=== PATIENT | female | born 1980 ===

== ENCOUNTER 2016-06-23 22:30 | Emergency (ER) | payer OTHER ==
[2016-06-23 22:41] VITALS: RESP 16; TEMP 98; O2SAT 100
[2016-06-24 01:12] LABS: BASO % 0.4 % (0.0-2.0); EOS % 0.4 % (0.0-4.0); HEMATOCRIT 34.4 % (34.0-47.0); LYMPH # 1.6 K/uL (1.0-4.3); LYMPH % 18.3 % (20.0-40.0); MEAN CELL VOLUME 89.1 fl (81.0-99.0); MEAN CORPUSCULAR HEMOGLOBIN 29.6 pg (27.0-31.0); MEAN CORPUSCULAR HGB CONC 33.2 g/dL (33.0-37.0); MONO # 0.8 K/uL (0.0-0.8); MONO % 8.6 % (0.0-10.0); NEUT # 6.4 K/uL (1.8-7.0); NEUT % 72.3 % (50.0-75.0); RED CELL DISTRIBUTION WIDTH 15.3 % (11.5-14.5); WHITE BLOOD COUNT 8.9 K/uL (4.8-10.8)
--- NOTE | 2016-06-24 02:24 | ED PDOC ---
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 Patient sat on the toilet before urinating and saw lots of blood. Denies any associated pain. Abnormal Vaginal Bleeding: Yes : 1 Para: 0 Miscarriage: 0 Past Medical History Reviewed: Historical Data, Nursing Documentation, Vital Signs Vital Signs: Last Vital Signs Temp 98.0 F 06/23/16 22:38 Pulse 95 H 06/23/16 22:38 Resp 16 06/23/16 22:38 BP 108/59 L 06/23/16 22:38 Pulse Ox 100 06/23/16 22:38 - Medical History PMH: No Chronic Diseases - Surgical History Surgical History: Appendectomy Other surgeries: Left Oophorectomy - Family History Family History: States: No Known Family Hx - Social History Current smoker - smoking cessation education provided: No Ex-Smoker (has not smoked in the last 12 months): No Alcohol: None Drugs: Denies - Home Medications Home Medications: Ambulatory Orders Medication Instructions Recorded Acetaminophen/Hydrocodone Bi 1 tab PO QID PRN #10 tab 10/22/14 [Vicodin 300 mg-5 mg] - Allergies Allergies/Adverse Reactions: Allergies Allergy/AdvReac Type Severity Reaction Status Date / Time No Known Allergies Allergy Unverified 10/29/12 21:13 Review of Systems ROS Statement: Except As Marked, All Systems Reviewed And Found Negative Genitourinary Female: Positive for: Vaginal Bleeding Physical Exam - Reviewed Nursing Documentation Reviewed: Yes Vital Signs Reviewed: Yes - Physical Exam Appears: Positive for: Well, No Acute Distress Head Exam: Positive for: ATRAUMATIC, NORMAL INSPECTION, NORMOCEPHALIC Skin: Positive for: Normal Color, Warm, Dry Eye Exam: Positive for: Normal appearance, EOMI, PERRL ENT: Positive for: Normal ENT Inspection Neck: Positive for: Normal, Painless ROM, Supple Cardiovascular/Chest: Positive for: Regular Rate, Rhythm. Negative for: Murmur , Tachycardia Respiratory: Positive for: Normal Breath Sounds. Negative for: Wheezing, Respiratory Distress Gastrointestinal/Abdominal: Positive for: Normal Exam, Soft. Negative for: Tenderness Pelvic Exam: Positive for: External Exam Normal Back: Positive for: Normal Inspection Rectal: Positive for: Deferred Extremity: Positive for: Normal ROM Lymphatic: Positive for: Deferred Neurologic/Psych: Positive for: Alert, Oriented - Laboratory Results Result Diagrams: 06/24/16 00:12 - ECG O2 Sat by Pulse Oximetry: 100 (RA) Pulse Ox Interpretation: Normal Medical Decision Making Medical Decision Makin: Initial Impression: Female Genitourinary Initial Plan: * ABO/RH * Type and screen * Beta HCG * Urine * ED Udip * CBC * OB Transvaginal * Pelvis/Transvagag US * Re-Eval 0814: EXAM: US , Transvaginal CLINICAL HISTORY: 36 years old, female; Signs and symptoms; Lmp or gestational age (in weeks): ; Antepartum complications; Hemorrhage; TECHNIQUE: Real-time transvaginal obstetrical ultrasound of the maternal pelvis and a first trimester with image documentation. Transvaginal imaging was used for better evaluation of the fetus and adnexa. EXAM DATE/TIME: 06/24/2016 2:04 AM COMPARISON: No relevant prior studies available. FINDINGS: The uterus measures 10 x 7 cm. The cervix measures 4.1 cm. There is a 2 cm left fundal intramural fibroid. There is an intrauterine gestational sac containing a yolk sac and pole. Measurements correspond to a gestational age of 9 weeks 2 days. A heart rate of 173 beats per minute was obtained. There is a small 6 millimeter hypoechoic structure adjacent to the gestational sac likely representing a subchorionic bleed. Followup is recommended. There is a 1.4 cm simple cyst in the maternal right ovary. The maternal left ovary appears normal. Color flow and doppler vascular waveforms were demonstrated to both maternal ovaries. ROZINA KHAN | Final Radiology Report CONFIDENTIALITY STATEMENT This report is intended only for use by the referring physician, and only in accordance with law. If you received this in error, call [phone]. Page 2 of 2 IMPRESSION: Single live IUP. Small subchorionic bleed. Cyst maternal right ovary. US REPORT Labs showed no clinical significant abnormalities. Provider explained results and significance to patient. Pelvic and bed rest is advised for patient. She will f/u with Dr Gupta in 2-3 days Dx Subchorionic Hemmorage in early stable Scribe~Attestation: Documented by Yvon Pimentel acting as a~scribe~for Ian Pepper MD. ~ Provider~Scribe~Attestation: All medical record entries made by the~Scribe~were at my direction and personally dictated by me. I have reviewed the chart and agree that the record accurately reflects my personal performance of the history, physical exam, medical decision making, and the department course for this patient. I have also personally directed, reviewed, and agree with the discharge instructions and disposition. Disposition - Clinical Impression Clinical Impression: Subchorionic hemorrhage in first trimester - Disposition Referrals: Angelic Hermosillo MD [Primary Care Provider] - Jose Manuel Gracia MD [Staff Provider] - Disposition: Routine/Home Disposition Time: 04:00 Condition: STABLE Instructions: Subchorionic Hemorrhage (ED)"
[2016-06-24 03:48] VITALS: BP 112/65; PULSE 84
--- NOTE | 2016-06-24 12:42 | US ---
Indication: Vaginal bleeding in Comparison: None available Technique: Ob transvaginal ultrasound. Findings: There is a single intrauterine fetus present. 4 mm yolk sac. The gestational sac measures 3.5 cm and is compatible with a gestational age of 8 weeks 4 days. The crown-rump length measures 3.1 cm and is compatible with a gestational age of 10 weeks 0 days. There is heart motion which measured 173 BPM. 1.0 x 0.4 x 0.6 cm hypoechoic structure adjacent to the gestational sac, likely subchorionic hemorrhage. Evidence of 2 cm left fundal intramural fibroid. Cervix length measures approximately 4.1 cm. The right ovary measures 2.4 x 2.2 x 2.1 cm. 1.5 x 1.4 x 1.3 cm probable right ovarian follicle/cyst. The left ovary measures 1.2 x 0.5 x 1.7 cm. Blood flow was demonstrated to both ovaries. Impression: Live single intrauterine with estimated gestational age 8 weeks 4 days by gestational sac calculation and 10 weeks 0 days by crown-rump length calculation. heart rate 173 bpm. Small subchorionic hemorrhage. Probable uterine fibroid. Advise an anomaly screen at 16-18 weeks gestational age Preliminary impression was provided by virtual radiologic.
== END 2016-06-24 03:20 | disposition home or self-care (01) ==
LOC: H.ER 22:30
DX: O20.8 Other hemorrhage in early pregnancy (principal); O34.11 Maternal care for benign tumor of corpus uteri, first trimester; N83.201 Unspecified ovarian cyst, right side; Z3A.10 10 weeks gestation of pregnancy; Z87.891 Personal history of nicotine dependence

== ENCOUNTER 2016-09-09 02:50 | Emergency (ER) | payer OTHER ==
--- NOTE | 2016-09-09 04:36 | OBHP ---
Datetime: 09/09/2016 04:28 IP Adm Impression: , intrauterine ; No Active Labor; Intact Membranes IP Admit Plan: Observation/Evaluation; Discharge home Admit Comment, IP Provider: 36yo at 19.4wks GA c/o cramping. No VB, LoF, ctxs. No FM as of ye t. Pt reports being told she has a shortened cervix PMHx none PSHx Appendectomy, Oophorectomy Meds PNV NKDA OBHx SocHx No tobacco, no etoh, no drugs A-- No evidence of PTL or cervical incompetance at this time P-- Check UA, discharge home if results normal. Discussed plan with patient Pelvic Type - PN: Adequate Extremities - PN: Normal Abdomen - PN: Normal Back - PN: Normal Breast - PN: Normal Lungs - PN: Normal Heart - PN: Normal Thyroid - PN: Normal Neurologic - PN: Normal HEENT - PN: Normal General - PN: Normal FHR - Baseline A Provider: 160 doppler Membranes, Provider: Intact Contraction Comments Provider: none Comments, ACOG Physical Exam: Cx L/C/P Pool Provider: Negative EGA AdmitDate IP: 19.4 Vital Signs Provider: Reviewed; Within Normal Limits IP Chief Complaint: Maternal discomfort Dilatation, Provider: 0 Effacement, Provider: 0 Station, Provider: -4 Genitourinary Exam: Normal DTRs - PN: Normal
[2016-09-09 04:48] VITALS: BMI 34.4
[2016-09-09 05:49] LABS: URINE BILIRUBIN NEGATIVE (NEGATIVE); URINE BLOOD NEGATIVE (NEGATIVE); URINE CLARITY SLIGHT-CLOUDY (Clear); URINE COLOR STRAW (YELLOW); URINE GLUCOSE (UA) NEGATIVE (Normal); URINE PROTEIN NEGATIVE (NEGATIVE); URINE UROBILINOGEN 0.2 mg/dL (0.2-1.0)
[2016-09-09 05:50] LABS: URINE LEUKOCYTE ESTERASE NEGATIVE Leu/uL (Negative); URINE NITRATE NEGATIVE (NEGATIVE)
== END 2016-09-09 06:02 | disposition home or self-care (01) ==
LOC: H.EROB2 02:50
DX: O26.892 Other specified pregnancy related conditions, second trimester (principal); R10.9 Unspecified abdominal pain; Z3A.19 19 weeks gestation of pregnancy

== ENCOUNTER 2016-11-01 14:58 | Emergency (ER) | payer OTHER ==
--- NOTE | 2016-11-01 15:16 | OBADHP ---
Datetime: 09/09/2016 04:28 Admit Comment, IP Provider: 36yo at 19.4wks GA c/o cramping. No VB, LoF, ctxs. No FM as of ye t. Pt reports being told she has a shortened cervix PMHx none PSHx Appendectomy, Oophorectomy Meds PNV NKDA OBHx SocHx No tobacco, no etoh, no drugs A-- No evidence of PTL or cervical incompetance at this time P-- Check UA, discharge home if results normal. Discussed plan with patient Pelvic Type - PN: Adequate Extremities - PN: Normal Abdomen - PN: Normal Back - PN: Normal Breast - PN: Normal Lungs - PN: Normal Heart - PN: Normal Thyroid - PN: Normal Neurologic - PN: Normal HEENT - PN: Normal General - PN: Normal FHR - Baseline A Provider: 160 doppler Membranes, Provider: Intact Contraction Comments Provider: none Comments, ACOG Physical Exam: Cx L/C/P Pool Provider: Negative Vital Signs Provider: Reviewed; Within Normal Limits IP Chief Complaint: Maternal discomfort Dilatation, Provider: 0 Effacement, Provider: 0 Station, Provider: -4 Genitourinary Exam: Normal DTRs - PN: Normal EGA AdmitDate IP: 19.4 IP Adm Impression: , intrauterine ; No Active Labor; Intact Membranes IP Admit Plan: Observation/Evaluation; Discharge home
[2016-11-01 16:12] VITALS: BMI 32.5
[2016-11-01 21:15] VITALS: BP 103/65; PULSE 101
--- NOTE | 2016-11-02 00:38 | OBDCSUM ---
Datetime: 11/01/2016 16:58 Discharged to, Provider: Home Follow up at, Provider: Dr. Alexander Disch Instr Activity: Bedrest Disch Instr Diet: Regular Discharge Time: 11/01/2016 16:59 Follow up in weeks, Provider: 11/10/16 Disch Referrals: None Discharge Comment, Provider: spoke to Dr Alexander...will dischager home and follow up in 1w as sche duled Discharge Diagnosis Prov Other: tacycardia
== END 2016-11-01 17:00 | disposition home or self-care (01) ==
LOC: H.EROB2 14:58 → H.EROB 15:31 → H.EROB2 17:00
DX: O47.02 False labor before 37 completed weeks of gestation, second trimester (principal); Z3A.19 19 weeks gestation of pregnancy

== ENCOUNTER 2016-11-17 18:54 | Observation (INO) | payer OTHER ==
[2016-11-17 20:29] VITALS: BMI 33.3
[2016-11-17 21:45] LABS: BASO % 0.4 % (0.0-2.0); EOS % 0.4 % (0.0-4.0); HEMATOCRIT 34.9 % (34.0-47.0); LYMPH # 1.6 K/uL (1.0-4.3); LYMPH % 17.5 % (20.0-40.0); MEAN CELL VOLUME 93.1 fl (81.0-99.0); MEAN CORPUSCULAR HEMOGLOBIN 31.4 pg (27.0-31.0); MEAN CORPUSCULAR HGB CONC 33.8 g/dL (33.0-37.0); MEAN PLATELET VOLUME 7.5 fl (7.2-11.7); MONO # 0.9 K/uL (0.0-0.8); MONO % 9.8 % (0.0-10.0); NEUT # 6.5 K/uL (1.8-7.0); NEUT % 71.9 % (50.0-75.0); RED CELL DISTRIBUTION WIDTH 15.1 % (11.5-14.5)
[2016-11-18] MEDS: Lactated Ringer's 1,000 ML IV SCH ×2 (04:53→04:54)
--- NOTE | 2016-11-18 11:51 | OBHP ---
Datetime: 11/01/2016 16:04 IP Adm Impression: , intrauterine ; No Active Labor; Intact Membranes IP Chief Complaint Other: TACHYCARDIA NOTED ON SONOGRAM AT [facility] IP Admit Plan: Observation/Evaluation; Discharge home Admit Comment, IP Provider: 36yo IUP at 28w sent from [facility] for tachycardia. No SORM. no V B. +FM PNC CP Dr Gracia prental chart rev'd EDC Jan 23 PMH: denies PSH: laparoscopy; D_C; breast surgery, appendectomy; ovarina cystectomy NKA POBH: denies STD A: IUp at 29w reported tachycardia PLAN: prolonged NST contacted Dr Gracia's office Pelvic Type - PN: Adequate Extremities - PN: Normal Abdomen - PN: Normal Back - PN: Normal Breast - PN: Not Done Lungs - PN: Normal Heart - PN: Normal Thyroid - PN: Normal Neurologic - PN: Normal HEENT - PN: Normal General - PN: Normal FHR - Baseline A Provider: 150 Contraction Comments Provider: none Comments, ACOG Physical Exam: ROS: General: no weakness; no fatigue HEENT: no BUSBY; no visual dist CV: no palpitations; no no CP GI: no N/V no diarhea : no F/U/D MS: No joint pain IP Hx Assessment: The History has been Reviewed and is Current EGA AdmitDate IP: 27.1 Vital Signs Provider: Reviewed IP Chief Complaint: Other NICHD Variability Prov Fetus A: Moderate 6-25bpm NICHD Accel Fetus A IP Provider: 10X10 FHR Category Provider Fetus A: Category I NICHD Decel Fetus A IP Provider: None Dilatation, Provider: ft Genitourinary Exam: Normal DTRs - PN: Normal
--- NOTE | 2016-11-18 12:13 | OBHP ---
Datetime: 11/18/2016 11:51 IP Adm Impression: , intrauterine ; No Active Labor; Intact Membranes IP Admit Plan: Observation/Evaluation Admit Comment, IP Provider: iup 30 weeks with cervical shortening on bed rest c/o small vaginal blee d dark brown observed on exam cervix ft and no active bleeding admitted for observation if no bleedin g will obtain pelvic us for cervical length and discharged home to continue bed rest Pelvic Type - PN: Adequate Extremities - PN: Normal Abdomen - PN: Normal Back - PN: Normal Breast - PN: Normal Lungs - PN: Normal Heart - PN: Normal Thyroid - PN: Normal Neurologic - PN: Normal HEENT - PN: Normal General - PN: Normal FHR - Baseline A Provider: 150 Membranes, Provider: Intact Contraction Comments Provider: no Gestation - Est Wks by US: 30.0 EGA AdmitDate IP: 29.4 Vital Signs Provider: Reviewed; Within Normal Limits IP Chief Complaint: Vaginal bleeding NICHD Variability Prov Fetus A: Moderate 6-25bpm NICHD Accel Fetus A IP Provider: 10X10 FHR Category Provider Fetus A: Category I NICHD Decel Fetus A IP Provider: None Dilatation, Provider: ft Effacement, Provider: 50 Station, Provider: -2 Genitourinary Exam: Normal DTRs - PN: Normal
--- NOTE | 2016-11-18 12:20 | OBDCSUM ---
Datetime: 11/18/2016 12:13 Discharged to, Provider: Home Follow up at, Provider: Disch Instr Activity: Bedrest Disch Instr Diet: Regular Discharge Instructions, Provider: Specific instructions as noted Discharge Time: 11/18/2016 12:13 Follow up in weeks, Provider: 1week Disch Referrals: None Discharge Comment, Provider: al home today rtc 1week ,call service if any problems continue bed rest Datetime: 11/01/2016 16:58 Discharge Instructions, Provider: Specific instructions as noted
--- NOTE | 2016-11-18 14:18 | US ---
PROCEDURE: Limited ultrasound HISTORY: Vaginal bleeding, assess cervical length COMPARISON: 06/24/2016. TECHNIQUE: Standard protocol for this study/examination. FINDINGS: Live intrauterine gestation. Cardiac rate 146 beats per minute. Closed cervix 4.1 cm. IMPRESSION: Cervical length 4.1 cm. Live intrauterine gestation. No additional information can be gleaned from this limited study as requested and reported
[2016-11-18 20:07] VITALS: BP 105/61; PULSE 101; RESP 18; TEMP 98.4; O2SAT 99
== END 2016-11-18 15:45 | disposition home or self-care (01) ==
LOC: H.EROB2 18:54 → H.L&D 20:05
PROVIDERS: ADMIT Specialist; ATTEND Specialist
DX: O26.873 Cervical shortening, third trimester (principal); O76 Abnormality in fetal heart rate and rhythm complicating labor and delivery; Z3A.30 30 weeks gestation of pregnancy
CPT/HCPCS: 76817; 85025; 86850; 86900; 99284; G0378; J7120

== ENCOUNTER 2017-01-14 04:39 | Inpatient (IN) | payer BC, OTHER ==
--- NOTE | 2017-01-14 04:49 | OBHP ---
Datetime: 11/18/2016 11:51 IP Admit Plan: Admit to unit; Observation/Evaluation Admit Comment, IP Provider: iup 30 weeks with cervical shortening on bed rest c/o small vaginal blee d dark brown observed on exam cervix ft and no active bleeding admitted for observation if no bleedin g will obtain pelvic us for cervical length and discharged home to continue bed rest. ADDENDUM: PT ADMITTED EGA AdmitDate IP: 29.4
--- NOTE | 2017-01-14 04:49 | OBADHP ---
Datetime: 11/18/2016 11:51 Admit Comment, IP Provider: iup 30 weeks with cervical shortening on bed rest c/o small vaginal blee d dark brown observed on exam cervix ft and no active bleeding admitted for observation if no bleedin g will obtain pelvic us for cervical length and discharged home to continue bed rest. ADDENDUM: PT ADMITTED Pelvic Type - PN: Adequate Extremities - PN: Normal Abdomen - PN: Normal Back - PN: Normal Breast - PN: Normal Lungs - PN: Normal Heart - PN: Normal Thyroid - PN: Normal Neurologic - PN: Normal HEENT - PN: Normal General - PN: Normal FHR - Baseline A Provider: 150 Membranes, Provider: Intact Contraction Comments Provider: no Gestation - Est Wks by US: 30.0 Vital Signs Provider: Reviewed; Within Normal Limits IP Chief Complaint: Vaginal bleeding NICHD Variability Prov Fetus A: Moderate 6-25bpm NICHD Accel Fetus A IP Provider: 10X10 FHR Category Provider Fetus A: Category I NICHD Decel Fetus A IP Provider: None Dilatation, Provider: ft Effacement, Provider: 50 Station, Provider: -2 Genitourinary Exam: Normal DTRs - PN: Normal EGA AdmitDate IP: 29.4 IP Adm Impression: , intrauterine ; No Active Labor; Intact Membranes IP Admit Plan: Admit to unit; Observation/Evaluation Datetime: 11/01/2016 16:04 IP Chief Complaint Other: TACHYCARDIA NOTED ON SONOGRAM AT [facility] Comments, ACOG Physical Exam: ROS: General: no weakness; no fatigue HEENT: no BUSBY; no visual dist CV: no palpitations; no no CP GI: no N/V no diarhea : no F/U/D MS: No joint pain IP Hx Assessment: The History has been Reviewed and is Current
[2017-01-14 08:22] VITALS: BMI 29.9
[2017-01-14] MEDS ORDERED: Lactated Ringer's 1,000 ML IV SCH (08:30)
[2017-01-14] MEDS: Lactated Ringer's 1,000 ML IV SCH ×2 (09:00→10:07)
[2017-01-14 09:41] LABS: BASO % 0.4 % (0.0-2.0); HEMATOCRIT 38.9 % (34.0-47.0); LYMPH % 11.2 % (20.0-40.0); MEAN PLATELET VOLUME 7.9 fl (7.2-11.7); MONO # 0.7 K/uL (0.0-0.8); MONO % 7.6 % (0.0-10.0); NEUT # 7.5 K/uL (1.8-7.0); NEUT % 80.8 % (50.0-75.0); RED CELL DISTRIBUTION WIDTH 15.3 % (11.5-14.5); WHITE BLOOD COUNT 9.2 K/uL (4.8-10.8)
[2017-01-14] MEDS ORDERED: Bupivacaine HCl 0.25% PF (10 ml) Inj ONE (11:01)
[2017-01-14] MEDS ORDERED: Fentanyl/Bupivacaine HCl 250 ML EPI ONE (11:01)
[2017-01-14] MEDS ORDERED: Oxytocin 30 units/LR 500ML 30 U/500 ML BAG IV ONE (11:59)
[2017-01-14] MEDS ORDERED: Oxytocin 30 UNITS in Sodium Chloride 0.9% 500 ML IV ONE (12:15)
[2017-01-14] MEDS ORDERED: Lidocaine 1% Inj (20ml) ONE (14:40)
--- NOTE | 2017-01-14 16:44 | OBDS ---
DELIVERY PERSONNEL Delivery Doctor: Marina Gracia MD Packager Head: Miranda Key RN Anesthesiologist: Juan Carlos Siddiqui MD MATERNAL INFORMATION Delivery Anesthesia: Local; Epidural Medications in Delivery: Lidocaine 1%, Pitocin 30mu/500 mL Estimated Blood Loss (ml): 350ml Placenta Cultured: No Maternal Complications: None Provider Comments: deliveryof liive baby girl 9/9 meconium fluid cord with 3 vessels placenta intact repair of midline episiotomy and repair LABOR SUMMARY EDC: 01/23/2017 00:00 No. Babies in Womb: 1 Attempted: No Labor Anesthesia: Epidural LABOR INFORMATION Reason for Induction: Not Applicable Onset of Labor: 01/14/2017 03:15 Complete Dilatation: 01/14/2017 14:41 Oxytocin: Augmentation Group B Beta Strep: Negative Antibiotics # of Doses: n/a Antibiotics Time of Last Dose: n/a Steroids Given: None Reason Steroids Not Administered: Not Applicable MEMBRANES Membranes Rupture Method: Artificial Rupture of Membranes: 01/14/2017 11:43 Length of Rupture (hrs): 4.28 Amniotic Fluid Color: Heavy Meconium Amniotic Fluid Amount: Moderate Amniotic Fluid Odor: None STAGES OF LABOR Stage 1 hrs: 11 Stage 1 min: 26 Stage 2 hrs: 1 Stage 2 min: 19 Stage 3 hrs: 0 Stage 3 min: 5 Total Time in Labor hrs: 12 Total Time in Labor min: 50 VAGINAL DELIVERY Episiotomy: None Laceration Extension: N/A Laceration Type: None Laceration Repair: Yes Laceration Repair Note: repair of midline episiotomy with 2-0chromic Count Comment: correct BABY A INFORMATION Delivery Date/Time: 01/14/2017 16:00 Method of Delivery: Vaginal Born in Route : No : N/A Forceps: N/A Vacuum Extraction: N/A Shoulder Dystocia : No SHOULDER DYSTOCIA BABY A Infant Delivery Date/Time: 01/14/2017 16:00 PRESENTATION/POSITION BABY A Presentation: Cephalic Cephalic Presentation: Vertex Breech Presentation: N/A PLACENTA INFORMATION BABY A Placenta Delivery Time : 01/14/2017 16:05 Placenta Method of Delivery: Spontaneous Placenta Status: Delivered SCORES BABY A Heart Rate 1 min: >100 bpm Resp Effort 1 min: Good Cry Reflex Irritability 1 min: Cough or Sneeze or Pulls Away Muscle Tone 1 min: Active Motion Color 1 min: Body Balta, Extremities Blue Resuscitation Effort 1 min: N/A SCORE 1 MIN: 9 Heart Rate 5 min: >100 bpm Resp Effort 5 min: Good Cry Reflex Irritability 5 min: Cough or Sneeze or Pulls Away Muscle Tone 5 min: Active Motion Color 5 min: Body Balta, Extremities Blue Resuscitation Effort 5 min: N/A SCORE 5 MIN: 9 INFANT INFORMATION BABY A Gestational Age at Delivery: 38.5 Gestational Status: Term Infant Outcome : Liveborn Infant Condition : Stable Sex: Female IDENTIFICATION/MEDS BABY A ID Band Number: [id number] ID Band Location: Left Leg; Left Arm WEIGHT/LENGTH BABY A Birthweight (gms): 3235 Weight (lb): 7 Infant Weight (oz): 2 CORD INFORMATION BABY A No. Cord Vessels: 3 Nuchal Cord : N/A Cord Blood Taken: Yes Suction: Mouth; Nose
[2017-01-14] MEDS ORDERED: Oxycodone/Acetaminophen 5/325 mg Tab PO PRN ×4 (16:46→19:10)
[2017-01-15 10:46] LABS: BASO # 0.1 K/uL (0.0-0.2); BASO % 0.6 % (0.0-2.0); EOS % 0.2 % (0.0-4.0); LYMPH # 1.2 K/uL (1.0-4.3); LYMPH % 9.7 % (20.0-40.0); MEAN CELL VOLUME 94.4 fl (81.0-99.0); MEAN CORPUSCULAR HEMOGLOBIN 31.6 pg (27.0-31.0); MEAN CORPUSCULAR HGB CONC 33.5 g/dL (33.0-37.0); MEAN PLATELET VOLUME 7.6 fl (7.2-11.7); MONO # 0.7 K/uL (0.0-0.8); NEUT # 10.3 K/uL (1.8-7.0); NEUT % 83.5 % (50.0-75.0); PLATELET COUNT 215 K/uL (130-400); RED CELL DISTRIBUTION WIDTH 15.2 % (11.5-14.5); WHITE BLOOD COUNT 12.3 K/uL (4.8-10.8)
--- NOTE | 2017-01-15 11:27 | OBPPN ---
Datetime: 01/15/2017 11:24 PP Pain Prov: Within normal limits PP Pain Prov comment: No SOB, chest or leg pain PP Nausea Prov: Denies PP Flatus Prov: Yes PP Breasts Prov: Normal PP Lungs Prov: Normal PP Abdomen/Uterus Prov: Abnormal PP Lochia Prov: Normal PP Vulva/Perineum Prov: Not Done PP CVA Tenderness Prov: Normal PP Extremities Prov: Normal PP C/S Incision Prov: Not Applicable PP Progress Prov: Normal PP Comments Phys Exam Prov: b reast NE, not tender Abd soft ND, fundus firm below the umb NT EDxt n o calf tenderness PP Impression Prov: Normal progression PP Plan Prov: Continue present management PP Progress Note Prov: OOB and ambulation Start Fe SO4 Increase po fluids IP PP Procedures: None Vital Signs Provider PP: Reviewed
[2017-01-15 11:42] LABS: NEUTROPHIL 80 % (42-75); TOTAL CELLS COUNTED 100
[2017-01-15] MEDS ORDERED: Influenza Vaccine 18yr & older 0.5 ML/45 MCG SYR IM ONE (17:40)
--- NOTE | 2017-01-16 09:27 | OBPPN ---
Datetime: 01/16/2017 09:22 PP Pain Prov: Within normal limits PP Nausea Prov: Present PP Flatus Prov: Yes PP BM Prov: Yes PP Breasts Prov: Normal PP Heart Prov: Normal PP Lungs Prov: Normal PP Abdomen/Uterus Prov: Normal PP Lochia Prov: Normal PP Vulva/Perineum Prov: Normal PP CVA Tenderness Prov: Normal PP Extremities Prov: Normal PP Progress Prov: Normal PP Impression Prov: Normal progression PP Plan Prov: Continue present management PP Progress Note Prov: stable ppd2 dc home today IP PP Procedures: None Vital Signs Provider PP: Reviewed; Within Normal Limits
--- NOTE | 2017-01-16 09:30 | OBDCSUM ---
Datetime: 01/16/2017 09:24 Discharged to, Provider: Home Follow up at, Provider: Disch Instr Activity: Bedrest; May be up to bathroom; May be up for meals; May Shower Disch Instr Diet: Regular Discharge Instructions, Provider: Routine instructions given Discharge Diagnosis, Provider: Term Delivered Discharge Time: 01/16/2017 09:24 Follow up in weeks, Provider: 5-6 weeks Disch Referrals: None Disch Activity Restrictions: No exercising; No lifting; No driving; Minimize walking; Minimize stair -climbing; No sexual activity; Nothing in vagina - [place], tampons, douche Discharge Comment, Provider: jazmyne home today rto5-6 weeks call office if any problems Contraception after Delivery: Tubal Ligation
[2017-01-16 21:25] VITALS: BP 104/58; PULSE 87; RESP 16; TEMP 98.1; O2SAT 98
== END 2017-01-16 15:55 | disposition home or self-care (01) | DRG 775 ==
LOC: H.EROB2 04:39 → H.L&D 07:30 → H.OB/GYN 21:11
PROVIDERS: ADMIT Specialist; ATTEND Specialist
PROC: 0W8NXZZ Division of Female Perineum, External Approach (ICD-10-PCS; principal; 2017-01-14)
PROC: 10E0XZZ Delivery of Products of Conception, External Approach (ICD-10-PCS; 2017-01-14)
PROC: 10907ZC Drainage of Amniotic Fluid, Therapeutic from Products of Conception, Via Natural or Artificial Opening (ICD-10-PCS; 2017-01-14)
PROC: 4A1HXCZ Monitoring of Products of Conception, Cardiac Rate, External Approach (ICD-10-PCS; 2017-01-14)
DX: O26.873 Cervical shortening, third trimester (principal); O09.523 Supervision of elderly multigravida, third trimester; Z37.0 Single live birth; Z3A.38 38 weeks gestation of pregnancy

== ENCOUNTER 2017-02-11 14:28 | Emergency (ER) | payer OTHER ==
[2017-02-11 14:28] VITALS: BMI 29.9
[2017-02-11 14:36] VITALS: RESP 16; TEMP 98
[2017-02-11 15:55] LABS: BASO % 0.6 % (0.0-2.0); EOS % 0.4 % (0.0-4.0); HEMOGLOBIN 13.9 g/dL (12.0-16.0); LYMPH # 1.2 K/uL (1.0-4.3); LYMPH % 27.3 % (20.0-40.0); MEAN CELL VOLUME 93.6 fl (81.0-99.0); MEAN CORPUSCULAR HEMOGLOBIN 30.8 pg (27.0-31.0); MEAN CORPUSCULAR HGB CONC 32.9 g/dL (33.0-37.0); MEAN PLATELET VOLUME 9.2 fl (7.2-11.7); MONO # 0.5 K/uL (0.0-0.8); MONO % 10.2 % (0.0-10.0); NEUT # 2.8 K/uL (1.8-7.0); NEUT % 61.5 % (50.0-75.0); NRBC % 0.1 % (0.0-0.0); RBC 4.53 Mil/uL (3.80-5.20); RED CELL DISTRIBUTION WIDTH 14.4 % (11.5-14.5); WHITE BLOOD COUNT 4.5 K/uL (4.8-10.8)
--- NOTE | 2017-02-11 16:18 | RAD ---
HISTORY: chest pain COMPARISON: No prior. TECHNIQUE: Chest PA and lateral FINDINGS: LUNGS: No active pulmonary disease. PLEURA: No significant pleural effusion identified. No pneumothorax apparent. CARDIOVASCULAR: Normal. OSSEOUS STRUCTURES: No significant abnormalities. VISUALIZED UPPER ABDOMEN: Normal. OTHER FINDINGS: None. IMPRESSION: No active disease.
--- NOTE | 2017-02-11 16:32 | ED PDOC ---
HPI: Chest Pain Time Seen by Provider: 02/11/17 14:45 Chief Complaint (Nursing): Chest Pain Chief Complaint (Provider): Chest Pain History Per: Patient Onset/Duration Of Symptoms: Days (x2 weeks) Additional Complaint(s): 36 year old female presents to the emergency department with a complaint of an intermittent chest pain that is non-radiating and non-exertional x2 weeks. Reports chest pain is not related to anything that comes and goes. Patient describes pain is located to the xiphoid area. Patient states she visited her doctor at [facility] with an abnormal electrocardiogram (EKG). She says she has a history of abnormal EKG's and had seen Dr. Arredondo for it. Denies difficult breathing, fever, cough, syncope, and dizziness. Of note, patient underwent vaginal delivery in January 2017. Breast feeding normally. Against Medical Advice - AMA Patient Left Against Medical Advice: The patient declines admission to the hospital and wishes to leave the Emergency Department. This action is against my medical advice. This decision was made with informed refusal. The patient was told that admission to the hospital is necessary. Explanation of the reasons why were discussed. The risks of leaving were explained to the patient and include, but are not limited to, worsening of known or currently unknown conditions, permanent disability and from undiagnosed or untreated conditions. The patient has the capacity to make this informed decision and understands my explanation of the current medical problem and risks of leaving. The patient voluntarily accepts these risks and signed an AMA form documenting our conversation. The patient was given the opportunity to ask questions and reconsider. The patient was encouraged to return to the Emergency Department at any time for further care. Past Medical History Reviewed: Historical Data, Nursing Documentation, Vital Signs Vital Signs: Last Vital Signs Temp 98.0 F 02/11/17 14:36 Pulse 81 02/11/17 16:39 Resp 16 02/11/17 16:39 BP 151/98 H 02/11/17 16:39 Pulse Ox 99 02/11/17 18:16 - Medical History PMH: Denies: Depression, Diabetes, HTN - Surgical History Surgical History: Appendectomy - Family History Family History: States: Unknown Family Hx - Social History Current smoker - smoking cessation education provided: No Ex-Smoker (has not smoked in the last 12 months): No Alcohol: None - Immunization History Hx Tetanus Toxoid Vaccination: No Hx Influenza Vaccination: No Hx Pneumococcal Vaccination: No - Home Medications Home Medications: Ambulatory Orders Medication Instructions Recorded Multivit/Folic Acid/I 1 tab PO DAILY 02/11/17 [] - Allergies Allergies/Adverse Reactions: Allergies Allergy/AdvReac Type Severity Reaction Status Date / Time No Known Allergies Allergy Verified 09/09/16 04:47 MARIN Risk Score for UA/NSTEMI - MARIN Risk Score Age > 64: NO 3 or more CAD Risk Factors: NO Known CAD (Stenosis greater than 50%): NO Aspirin use in past 7 days: NO Severe Angina: NO EKG ST changes greater than 0.5mm: YES Positive Cardiac Marker: NO MARIN Score: 1 Risk %: 5% Wells Criteria for PE - Wells Criteria for Pulmonary Embolism Clinical Signs and Symptoms of DVT: No P.E is #1 Diagnosis, or Equally Likely: No Heart Rate >100: No Immobilization at least 3 days;Surgery previous 4 weeks: No Previous, objectively diagnosed PE or DVT: No Hemoptysis: No Malignancy w/treatment within 6 months, or palliative: No Total Score: 0 Review of Systems ROS Statement: Except As Marked, All Systems Reviewed And Found Negative (As per HPI, otherwise negative) Constitutional: Negative for: Fever Cardiovascular: Positive for: Chest Pain Respiratory: Negative for: Cough, Shortness of Breath Neurological: Negative for: Dizziness (or syncope) Physical Exam - Reviewed Nursing Documentation Reviewed: Yes Vital Signs Reviewed: Yes - Physical Exam Appears: Positive for: Well, Non-toxic, No Acute Distress Head Exam: Positive for: ATRAUMATIC, NORMAL INSPECTION, NORMOCEPHALIC Skin: Positive for: Normal Color, Warm, Dry Cardiovascular/Chest: Positive for: Regular Rate, Rhythm. Negative for: Murmur Respiratory: Positive for: Normal Breath Sounds. Negative for: Accessory Muscle Use, Respiratory Distress Gastrointestinal/Abdominal: Positive for: Normal Exam, Soft. Negative for: Tenderness Extremity: Positive for: Normal ROM. Negative for: Pedal Edema Neurologic/Psych: Positive for: Alert, Oriented (x3) - Laboratory Results Result Diagrams: 02/11/17 15:35 02/11/17 16:00 - ECG O2 Sat by Pulse Oximetry: 99 (RA) Pulse Ox Interpretation: Normal Medical Decision Making Medical Decision Making: Time: 1523 Initial impression: Chronic Chest Pain differential includes acute coronary syndrome (ACS), pulmonary embolism, and musculoskeletal pain. Initial plan: --EKG --BMP --Troponin I --CBC w/ diff --D Dimer (COAG) --Chest x-ray --Reevaluation Time: 1535 --WBC: 4.5 (Low) --D-Dimer, Quantitative: 167 --EKG: Sinus bradycardia with a rate of 54 bpm. Normal QRS. She does have non specific changes in the inferior leads with minor ST changes. Time: 1616 --Chest x-ray FINDINGS: LUNGS: No active pulmonary disease. PLEURA: No significant pleural effusion identified. No pneumothorax apparent. CARDIOVASCULAR: Normal. OSSEOUS STRUCTURES: No significant abnormalities. VISUALIZED UPPER ABDOMEN: Normal. OTHER FINDINGS: None. IMPRESSION: No active disease. Scribe Attestation: Documented by Leigh Villafana, acting as a scribe for Nichelle Mei MD. Provider Scribe Attestation: All medical record entries made by the Scribe were at my direction and personally dictated by me. I have reviewed the chart and agree that the record accurately reflects my personal performance of the history, physical exam, medical decision making, and the department course for this patient. I have also personally directed, reviewed, and agree with the discharge instructions and disposition. Disposition - Clinical Impression Clinical Impression: Chest pain, Left against medical advice - Patient ED Disposition Is Patient to be Admitted: No Doctor Will See Patient In The: Office Counseled Patient/Family Regarding: Studies Performed, Diagnosis, Need For Followup - Disposition Referrals: [facility] [Outside] Disposition: Against Medical Advice Disposition Time: 18:00 Condition: GOOD Additional Instructions: Take aspirin daily. Return for worsening. Follow up with your PCP in 2-3 days. Instructions: Chest Pain (ED), Against Medical Advice (ED)
[2017-02-11 16:40] VITALS: BP 151/98; PULSE 81
[2017-02-11 16:42] VITALS: O2SAT 99
[2017-02-11 16:49] LABS: BLOOD UREA NITROGEN 12 mg/dl (7-17); CALCIUM 9.4 mg/dL (8.4-10.2); GFR AFRICAN-AMERICAN > 60; GFR NON-AFRICAN AMERICAN > 60
--- NOTE | 2017-02-12 04:57 | CON ---
DATE: CARDIOLOGY CONSULTATION REASON FOR CONSULTATION: Chest pain and abnormal EKG. 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 The patient is a 36-year-old female, who has no significant past medical history. She had a full-term normal delivery, 01/14/2017 and two days later around Amos time the patient started to have sharp chest discomfort and today she had to present because of continuous sharp chest pain. Patient denies any radiation of her chest discomfort to the arms or to the jaw and is unaware of any prior cardiac history. The patient denies any associated diaphoresis, leg pain or swelling. The patient denies any history of deep venous thrombosis in the past. Her course was unremarkable. She was only taking vitamins and had no hypertension or hyperglycemia during her . SOCIAL HISTORY: Nonsmoker, nondrinker. MEDICATIONS: Patient was on oral vitamins daily. PHYSICAL EXAMINATION: GENERAL: The patient is a middle-aged female, who does not appear to be in acute distress. VITAL SIGNS: Blood pressure on presentation to the ER was 104/63 and currently 151/98, heart rate 60, temperature 98, respirations 16. HEENT: Normocephalic. NECK: No JVD. CHEST: Clear. HEART: S1, S2 regular. ABDOMEN: Soft. EXTREMITIES: No edema. LABORATORY DATA: SMA-7: Sodium 142, potassium 4.4, chloride 104, CO2 of 29, glucose 83, BUN 12, creatinine 0.8. One set of troponin is negative. D-dimer is within normal limits. CBC: WBC 4.5, hemoglobin 15.9, hematocrit 42.4, platelet count 196,000. Chest x-ray was unremarkable. EKG revealed sinus bradycardia with sinus arrhythmia,short NC interval, left atrial enlargement and inferolateral ischemic ST-segment depression. ASSESSMENT: 1. Chest pain, rule out myocardial infarction. 2. Rule out the less likely possibility of pulmonary infarction. 3. Hypertension. RECOMMENDATIONS: I did discuss with the patient the need of the patient admission to follow EKGs and serial cardiac enzymes and obtain an echocardiogram; however, the patient does have issues, that she left her newly born 4-week-old baby with an elderly person. She does give breast feeding to the baby. The case was discussed with an Emergency Room physician and we have to sign out the patient against medical advice. Duarte Mortensen MD
--- NOTE | 2017-02-12 11:54 | CARD ---
APPROVED REPORT EKG Measurement Heart [id number] <Conclusion> Sinus bradycardia with marked sinus arrhythmia Possible Left atrial enlargement Marked ST abnormality, possible inferior subendocardial injury Abnormal ECG
== END 2017-02-11 18:37 | disposition left against medical advice (07) ==
LOC: H.ER 14:28
DX: R07.89 Other chest pain (principal); I10 Essential (primary) hypertension; G89.29 Other chronic pain; Z87.891 Personal history of nicotine dependence

== ENCOUNTER 2017-02-13 06:42 | Observation (INO) | payer OTHER ==
[2017-02-13 06:42] VITALS: BMI 29.9
[2017-02-13] MEDS ORDERED: Nitroglycerin 2% Ointment Foilpak UD TOP STA ×2 (07:40→09:02)
--- NOTE | 2017-02-13 07:41 | ED PDOC ---
HPI: Chest Pain Time Seen by Provider: 02/13/17 07:27 Chief Complaint (Nursing): Chest Pain Chief Complaint (Provider): Chest Pain History Per: Patient History/Exam Limitations: no limitations Onset/Duration Of Symptoms: Days (x 3) Current Symptoms Are (Timing): Still Present Additional Complaint(s): 36 y/o female with a history of heart murmur presents to the ED c/o chest pain, onset 3 days ago. Pain is sharp substernal and not radiating. She was seen here Monday for the same complaint, was advised admission due to abnormal EKG adn signed out AMA. Denies shortness of breath, palpitations, dizziness and drug abuse. PMD: none provided Past Medical History Reviewed: Historical Data, Nursing Documentation, Vital Signs Vital Signs: Last Vital Signs Temp 98 F 02/13/17 07:12 Pulse 51 L 02/13/17 09:15 Resp 14 02/13/17 07:12 BP 103/68 02/13/17 09:15 Pulse Ox 98 02/13/17 07:51 - Medical History PMH: Denies: Depression, Diabetes, HTN Other PMH: Heart murmur - Surgical History Surgical History: Appendectomy Other surgeries: Oopherectomy - Family History Family History: States: Unknown Family Hx - Social History Current smoker - smoking cessation education provided: No Alcohol: None Drugs: Denies - Immunization History Hx Tetanus Toxoid Vaccination: No Hx Influenza Vaccination: No Hx Pneumococcal Vaccination: No - Home Medications Home Medications: Ambulatory Orders Medication Instructions Recorded Multivit/Folic Acid/I 1 tab PO DAILY 02/11/17 [] - Allergies Allergies/Adverse Reactions: Allergies Allergy/AdvReac Type Severity Reaction Status Date / Time No Known Allergies Allergy Verified 02/13/17 07:11 Review of Systems ROS Statement: Except As Marked, All Systems Reviewed And Found Negative Cardiovascular: Positive for: Chest Pain (sharp, substernal). Negative for: Palpitations Respiratory: Negative for: Shortness of Breath Neurological: Negative for: Dizziness Physical Exam - Reviewed Nursing Documentation Reviewed: Yes Vital Signs Reviewed: Yes - Physical Exam Appears: Positive for: Non-toxic, No Acute Distress Head Exam: Positive for: ATRAUMATIC, NORMOCEPHALIC Skin: Positive for: Normal Color, Warm, Dry Eye Exam: Positive for: EOMI, Normal appearance, PERRL Cardiovascular/Chest: Positive for: Regular Rate, Rhythm Respiratory: Positive for: CNT, Normal Breath Sounds (bilaterally) Gastrointestinal/Abdominal: Positive for: Normal Exam, Soft. Negative for: Tenderness Extremity: Positive for: Normal ROM. Negative for: Tenderness, Swelling Neurologic/Psych: Positive for: Alert, Oriented - ECG O2 Sat by Pulse Oximetry: 98 (RA) Pulse Ox Interpretation: Normal Medical Decision Making Medical Decision Making: Time: 07:40 Initial Plan: --EKG --Urine drug screen --Troponin --Urine preg --Aspirin 325 mg PO --Nitroglycerin 2% Scribe Attestation: Documented by Ivana Rachel, acting as a scribe for Jose Manuel Jacobsen MD Provider Scribe Attestation: All medical record entries made by the Scribe were at my direction and personally dictated by me. I have reviewed the chart and agree that the record accurately reflects my personal performance of the history, physical exam, medical decision making, and the department course for this patient. I have also personally directed, reviewed, and agree with the discharge instructions and disposition. Disposition - Clinical Impression Clinical Impression: Chest pain - Patient ED Disposition Is Patient to be Admitted: Yes - Disposition Disposition Time: 10:17 Condition: FAIR Forms: [employer] (Danish) - Pt Status Changed To: Hospital Disposition Of: Observation - POA Present On Arrival: None
[2017-02-13] MEDS ORDERED: Nitroglycerin 2% Ointment Foilpak UD TOP ONE (08:35)
[2017-02-13 10:04] LABS: BARBITURATES, UR NEGATIVE (NEGATIVE); BENZODIAZEPINES, UR NEGATIVE (NEGATIVE); OPIATES, UR NEGATIVE (NEGATIVE); PHENCYCLIDINE, UR NEGATIVE (NEGATIVE)
[2017-02-13 12:50] VITALS: O2SAT 97
[2017-02-13 15:51] VITALS: BP 108/67; PULSE 71; RESP 20; TEMP 97.3
--- NOTE | 2017-02-13 17:21 | CP.PCM.CON ---
History of Present Illness - History of Present Illness History of Present Illness: I was asked to see patient by Dr Orr and Dr Thompson Patient is a 36 year old female with no PMH who presents with chest pain. The patient describes a pressure like sensation, which is central and sharp. The patient states symptoms have been intermittent since Amos. The patient was brought to the hospital for further mgmt. Review of Systems - Constitutional Constitutional: absent: As Per HPI, Anorexia, Chills, Daytime Sleepiness, Excessive Sweating, Fatigue, Fever, Frequent Falls, Headache, Increased Appetite , Lethargy, Malaise, Night Sweats, Snoring, Sleep Apnea, Weight Gain, Weight Loss, Weakness, Other - EENT Eyes: absent: As Per HPI, Blind Spots, Blurred Vision, Change in Vision, Decreased Night Vision, Diplopia, Discharge, Dry Eye, Exophthalmos, Floaters, Irritation, Itchy Eyes, Loss of Peripheral Vision, Pain, Photophobia, Requires Corrective Lenses, Sees Flashes, Spots in Vision, Tunnel Vision, Other Visual Disturbances, Loss of Vision, Other Ears: absent: As Per HPI, Decreased Hearing, Ear Discharge, Ear Pain, Tinnitus, Abnormal Hearing, Disequilibrium, Dizziness, Other Nose/Mouth/Throat: absent: As Per HPI, Epistaxis, Nasal Congestion, Nasal Discharge, Nasal Obstruction, Nasal Trauma, Nose Pain, Post Nasal Drip, Sinus Pain, Sinus Pressure, Bleeding Gums, Change in Voice, Dental Pain, Dry Mouth, Dysphagia, Halitosis, Hoarsness, Lip Swelling, Mouth Lesions, Mouth Pain, Odynophagia, Sore Throat, Throat Swelling, Tongue Swelling, Facial Pain, Neck Pain, Neck Mass, Other - Cardiovascular Cardiovascular: Chest Pain - Respiratory Respiratory: absent: As Per HPI, Cough, Dyspnea, Hemoptysis, Dyspnea on Exertion , Wheezing, Snoring, Stridor, Pain on Inspiration, Chest Congestion, Excessive Mucous Production, Change in Mucous Color, Pain with Coughing, Other - Gastrointestinal Gastrointestinal: absent: As Per HPI, Abdominal Pain, Belching, Bloating, Change in Bowel Habits, Change in Stool Character, Coffee Ground Emesis, Constipation, Cramping, Diarrhea, Dyspepsia, Dysphagia, Early Satiety, Excessive Flatus, Fecal Incontinence, Heartburn, Hematemesis, Hematochezia, Loose Stools, Melena, Nausea, Odynophagia, Temesmus, Vomiting, Other - Genitourinary Genitourinary: absent: As Per HPI, Change in Urinary Stream, Difficulty Urinating, Dysuria, Flank Pain, Hematuria, Pyuria, Nocturia, Urinary Incontinence, Urinary Frequency, Urinary Hesitance, Urinary Urgency, Voiding Freq/Small Amts, Freq UTI, Hx Renal/Bladder Calculi, Hx /Renal Surgery, Bladder Distension, Other - Musculoskeletal Musculoskeletal: absent: As Per HPI, Abnormal Gait, Arthralgias, Atrophy, Back Pain, Deformity, Joint Swelling, Limited Range of Motion, Loss of Height, Muscle Cramps, Muscle Weakness, Myalgias, Neck Pain, Numbness, Radiating Pain into Limb, Stiffness, Tingling, Other - Integumentary Integumentary: absent: As Per HPI, Acne, Alopecia, Bleeding Lesions, Change in Hair, Change in Nails, Change in Pigmentation, Changing Lesions, Dry Skin, Erythema, Furuncle, Hirsutism, Lesions, New Lesions, Non-Healing Lesions, Photosensitivity, Pruritus, Rash, Skin Pain, Skin Ulcer, Sores, Striae, Swelling , Unusual Bruising, Wounds, Jaundice, Other - Neurological Neurological: absent: As Per HPI, Abnormal Gait, Abnormal Hearing, Abnormal Movements, Abnormal Speech, Behavioral Changes, Burning Sensations, Confusion, Convulsions, Disequilibrium, Dizziness, Numbness, Focal Weakness, Frequent Falls , Headaches, Lack of Coordination, Loss of Vision, Memory Loss, Paresthesias, Radicular Pain, Restless Legs, Sensory Deficit, Syncope, Tingling, Tremor, Vertigo, Weakness, Other Visual Disturbances, Other - Psychiatric Psychiatric: absent: As Per HPI, Abnormal Sleep Pattern, Anhedonia, Anxiety, Auditory Hallucinations, Behavioral Changes, Change in Appetite, Change in Libido, Confusion, Depression, Difficulty Concentrating, Hallucinations, Homicidal Ideation, Hopelessness, Irritability, Memory Loss, Mood Swings, Panic Attacks, Paranoia, Suicidal Ideation, Visual Hallucinations, Tactile Hallucinations, Other - Endocrine Endocrine: absent: As Per HPI, Change in Body Appearance, Change in Libido, Cold Intolorance, Deepening of Voice, Excessive Sweating, Fatigue, Flushing, Heat Intolorance, Increase in Ring/Shoe/Hat Size, Palpitations, Polydipsia, Polyphagia, Polyuria, Other - Hematologic/Lymphatic Hematologic: absent: As Per HPI, Easy Bleeding, Easy Bruising, Lymphadenopathy, Other Past Patient History - Past Medical History & Family History Past Medical History?: No - Past Social History Smoking Status: Never Smoked - CARDIAC Hx Cardiac Disorders: No - PULMONARY Hx Respiratory Disorders: No - NEUROLOGICAL Hx Neurological Disorder: No - HEENT Hx HEENT Problems: No - RENAL Hx Chronic Kidney Disease: No - ENDOCRINE/METABOLIC Hx Endocrine Disorders: No - HEMATOLOGICAL/ONCOLOGICAL Hx Blood Disorders: No - INTEGUMENTARY Hx Dermatological Problems: No - MUSCULOSKELETAL/RHEUMATOLOGICAL Hx Musculoskeletal Disorders: No Hx Falls: No - GASTROINTESTINAL Hx Gastrointestinal Disorders: No - GENITOURINARY/GYNECOLOGICAL Hx Genitourinary Disorders: No - PSYCHIATRIC Hx Psychophysiologic Disorder: No Hx Substance Use: No - SURGICAL HISTORY Hx Appendectomy: Yes Hx Dilation and Curettage: Yes Other/Comment: ooperectomy, - ANESTHESIA Hx Anesthesia: Yes Hx Anesthesia Reactions: No Hx Malignant Hyperthermia: No Has any member of the family had a problem w/ anesthesia?: No Meds Allergies/Adverse Reactions: Allergies Allergy/AdvReac Type Severity Reaction Status Date / Time No Known Allergies Allergy Verified 02/13/17 07:11 - Medications Medications: Current Medications Aspirin (Aspirin Chewable) 81 mg PO DAILY CHER Physical Exam - Constitutional Appears: Non-toxic - Head Exam Head Exam: NORMAL INSPECTION - Eye Exam Eye Exam: Normal appearance - ENT Exam ENT Exam: Mucous Membranes Moist - Neck Exam Neck exam: Positive for: Full Rom - Respiratory Exam Respiratory Exam: NORMAL BREATHING PATTERN - Cardiovascular Exam Cardiovascular Exam: REGULAR RHYTHM - GI/Abdominal Exam GI & Abdominal Exam: Normal Bowel Sounds - Rectal Exam Rectal Exam: Deferred - Extremities Exam Extremities exam: Negative for: pedal edema - Back Exam Back exam: NORMAL INSPECTION - Neurological Exam Neurological exam: Alert, Oriented x3 - Psychiatric Exam Psychiatric exam: Normal Affect - Skin Skin Exam: Normal Color Results - Vital Signs Recent Vital Signs: Last Vital Signs Temp 97.3 F L 02/13/17 15:51 Pulse 71 02/13/17 15:51 Resp 20 02/13/17 15:51 BP 108/67 02/13/17 15:51 Pulse Ox 97 02/13/17 15:51 - Labs Labs: Laboratory Results - last 24 hr 02/13/17 02/13/17 09:01 09:30 Troponin I < 0.0120 Urine Opiates Screen Negative Urine Methadone Screen Negative Ur Barbiturates Screen Negative Ur Phencyclidine Scrn Negative Ur Amphetamines Screen Negative U Benzodiazepines Scrn Negative U Oth Cocaine Metabols Negative U Cannabinoids Screen Negative - EKG Data EKG Interpreted by: Myself EKG shows normal: Sinus rhythm Assessment & Plan (1) Chest pain Assessment and Plan: the cardiac enzymes are negative. The echocardiogram reveals normal left ventricular function. Patient s stable for discharge. I recommend ASA therapy. She will schedule outpatient stress test. Status: Acute
--- NOTE | 2017-02-13 17:56 | CARD ---
APPROVED REPORT EXAM: Two-dimensional and M-mode echocardiogram with Doppler and color Doppler. Other Information Quality : GoodRhythm : NSR INDICATION Abnormal EKG/Arrhythmia Chest Pain 2D DIMENSIONS IVSd0.87 (0.7-1.1cm)LVDd4.56 (3.9-5.9cm) PWd1.01 (0.7-1.1cm)IVSs1.77 (0.8-1.2cm) LVDs2.92 (2.5-4.0cm)FS (%) 36.0 % PWs1.48 (0.8-1.2cm)LVEF (%)65.0 (>50%) M-Mode DIMENSIONS Left Atrium (MM)4.94 (2.5-4.0cm)Aortic Root2.70 (2.2-3.7cm) Aortic Cusp Exc.1.78 (1.5-2.0cm) Mitral Valve MV E Jzceurgr58.8cm/sMV E Peak Gr.17mmHgMV DECEL [id number] MV A Jefubkec12.4cm/sMV [id number]/A ratio1.3 MVA (PHT)4.31cm2 TDI Lateral E' Peak V12.96cm/sE/Lateral E'5.0E/Medial E'0.0 Tricuspid Valve TR Peak Duozszbo313kz/sTR Peak Gr.20mmHg LEFT VENTRICLE The left ventricle is normal in size. There is normal left ventricular wall thickness. The left ventricular function is normal. The left ventricular ejection fraction is - 70%. There is normal LV segmental wall motion. The left ventricular diastolic function is normal. No left ventricle thrombus noted on this study. There is no ventricular septal defect visualized. There is no left ventricular aneurysm. There is no mass noted in the left ventricle. RIGHT VENTRICLE The right ventricle is normal size. There is normal right ventricular wall thickness. The right ventricular systolic function is normal. ATRIA The left atrium is mildly dilated. There is no thrombus suspected in the left atrium. The right atrium size is normal. The interatrial septum is intact with no evidence for an atrial septal defect. AORTIC VALVE The aortic valve is normal in structure. No aortic regurgitation is present. There is no aortic valvular stenosis. MITRAL VALVE The mitral valve is normal in structure. There is no evidence of mitral valve prolapse. There is no mitral valve stenosis. Mitral regurgitation is trace. TRICUSPID VALVE The tricuspid valve is normal in structure. There is mild tricuspid regurgitation. Right ventricular systolic pressure is estimated at 30 mmHg. There is no tricuspid valve prolapse or vegetation. There is no tricuspid valve stenosis. PULMONIC VALVE The pulmonary valve is normal in structure. There is no pulmonic valvular regurgitation. GREAT VESSELS The aortic root is normal in size. The IVC was not well visualized. PERICARDIAL EFFUSION The pericardium appears normal. There is no pleural effusion. <Conclusion> The left ventricle is normal in size and wall thickness. The left ventricular function is normal. The left ventricular ejection fraction is - 70%. The left atrium is mildly dilated. The mitral, aortic and tricuspid valves are normal. There is trace mitral regurgitation and mild tricuspid regurgitation.
--- NOTE | 2017-02-13 18:56 | CP.PCM.DIS ---
Provider - Provider Date of Admission: 02/13/17 10:16 Attending physician: Russ Orr MD Time Spent in preparation of Discharge (in minutes): 15 Diagnosis - Discharge Diagnosis (1) Chest pain Status: Acute Hospital Course - Lab Results Lab Results: Most Recent Lab Values Troponin I < 0.0120 ng/mL (0.00-0.120) 02/13/17 16:10 Urine Opiates Screen Negative (NEGATIVE) 02/13/17 09:30 Urine Methadone Screen Negative (NEGATIVE) 02/13/17 09:30 Ur Barbiturates Screen Negative (NEGATIVE) 02/13/17 09:30 Ur Phencyclidine Scrn Negative (NEGATIVE) 02/13/17 09:30 Ur Amphetamines Screen Negative (NEGATIVE) 02/13/17 09:30 U Benzodiazepines Scrn Negative (NEGATIVE) 02/13/17 09:30 U Oth Cocaine Metabols Negative (NEGATIVE) 02/13/17 09:30 U Cannabinoids Screen Negative (NEGATIVE) 02/13/17 09:30 Discharge Exam - Head Exam Head Exam: NORMAL INSPECTION Discharge Plan - Follow Up Plan Condition: FAIR Disposition: AGAINST MEDICAL ADVICE Instructions: Chest Pain (DC), Chest Pain (GEN) Additional Instructions: cleared by cardio, chose to sign ama. final dx- cp f/u rmg in am, rte dprn, outpt stress as per cardio Referrals: Russ Orr MD [Staff Provider] - Phillip Dewitt MD [Staff Provider] -
--- NOTE | 2017-02-13 18:56 | CP.PCM.HP ---
History of Present Illness - History of Present Illness History of Present Illness: pt seen by dr huerta and prior to this providers arrival. pt wishes to go home tonight. no f/c, n/v/d. was in er fro cp sat and left ama. cam e back today w/ negative trop in er both times. echo noted. cleared for dc by dr huerta Present on Admission - Present on Admission Any Indicators Present on Admission: No Review of Systems - Cardiovascular Cardiovascular: As Per HPI, Chest Pain Past Patient History - Past Medical History & Family History Past Medical History?: No - Past Social History Smoking Status: Never Smoked - CARDIAC Hx Cardiac Disorders: No - PULMONARY Hx Respiratory Disorders: No - NEUROLOGICAL Hx Neurological Disorder: No - HEENT Hx HEENT Problems: No - RENAL Hx Chronic Kidney Disease: No - ENDOCRINE/METABOLIC Hx Endocrine Disorders: No - HEMATOLOGICAL/ONCOLOGICAL Hx Blood Disorders: No - INTEGUMENTARY Hx Dermatological Problems: No - MUSCULOSKELETAL/RHEUMATOLOGICAL Hx Musculoskeletal Disorders: No Hx Falls: No - GASTROINTESTINAL Hx Gastrointestinal Disorders: No - GENITOURINARY/GYNECOLOGICAL Hx Genitourinary Disorders: No - PSYCHIATRIC Hx Psychophysiologic Disorder: No Hx Substance Use: No - SURGICAL HISTORY Hx Appendectomy: Yes Hx Dilation and Curettage: Yes Other/Comment: ooperectomy, - ANESTHESIA Hx Anesthesia: Yes Hx Anesthesia Reactions: No Hx Malignant Hyperthermia: No Has any member of the family had a problem w/ anesthesia?: No Meds Allergies/Adverse Reactions: Allergies Allergy/AdvReac Type Severity Reaction Status Date / Time No Known Allergies Allergy Verified 02/13/17 07:11 Results - Vital Signs Recent Vital Signs: Last Vital Signs Temp 97.3 F L 02/13/17 15:51 Pulse 71 02/13/17 15:51 Resp 20 02/13/17 15:51 BP 108/67 02/13/17 15:51 Pulse Ox 97 02/13/17 15:51 - Labs Labs: Laboratory Results - last 24 hr 02/13/17 02/13/17 02/13/17 09:01 09:30 16:10 Troponin I < 0.0120 < 0.0120 Urine Opiates Screen Negative Urine Methadone Screen Negative Ur Barbiturates Screen Negative Ur Phencyclidine Scrn Negative Ur Amphetamines Screen Negative U Benzodiazepines Scrn Negative U Oth Cocaine Metabols Negative U Cannabinoids Screen Negative Assessment & Plan (1) Chest pain Assessment and Plan: pt cleared by cardio asa chose to sign ama tonight f/u rpg in am. rted prn Status: Acute Decision To Admit - Pt Status Changed To: Hospital Disposition Of: Observation - . Bed Request Type: Telemetry Admitting Physician: Russ Orr
--- NOTE | 2017-02-14 08:42 | CARD ---
APPROVED REPORT EKG Measurement Heart [id number] CA [id number] <Conclusion> Sinus bradycardia Possible Left atrial enlargement Marked ST abnormality, possible inferior subendocardial injury Abnormal ECG
== END 2017-02-13 18:30 | disposition left against medical advice (07) ==
LOC: H.ER 06:42 → H.ERHOLD 10:16 → H.TEL 11:50
PROVIDERS: ADMIT Family Medicine; ATTEND Family Medicine
DX: R07.89 Other chest pain (principal); Z90.49 Acquired absence of other specified parts of digestive tract
CPT/HCPCS: 80324; 80345; 80346; 80349; 80353; 80358; 80361; 81025; 83992; 84484; 93005; 93306; 99283; G0378

== ENCOUNTER 2017-05-16 07:05 | Day surgery (SDC) | payer BC, OTHER ==
[2017-05-16] MEDS ORDERED: Lactated Ringer's 500 ML IV ONE (07:50)
[2017-05-16] MEDS ORDERED: Lidocaine PF 2% (5 ml) Inj (For Cardiac Arrhy) IV ONE (09:40)
[2017-05-16] MEDS ORDERED: Propofol 10 mg/ml Inj (20 ML) ONE (09:40)
[2017-05-16 10:21] VITALS: TEMP 97
[2017-05-16 10:37] VITALS: BP 92/49; PULSE 64; RESP 19; O2SAT 100
== END 2017-05-16 10:38 | disposition home or self-care (01) ==
LOC: H.ENDO 07:05
PROVIDERS: ATTEND Internal Medicine Gastroenterology
DX: K62.5 Hemorrhage of anus and rectum (principal); K64.4 Residual hemorrhoidal skin tags; D12.5 Benign neoplasm of sigmoid colon
CPT/HCPCS: 45390; 88305; J2704; J7120